=== PATIENT | female | born 1990 | race Caucasian/White ===

== ENCOUNTER 2019-10-16 12:09 | Inpatient (IN) | payer OTHER ==
[~2019-10-16] VITALS: Ht 157.5 cm; Wt 96.8 kg
[~2019-10-16 12:09] MED LIST: ATARAX,VISTARIL50 MG PO; BUSPAR5 MG PO; CHLORDIAZEPOXID10 M2 PO; CLEOCIN150 MG PO; GABAPENTIN800 MG PO; LAMICTAL25 MG PO; LAMOTRIGINE100 MG PO; LIBRIUM5 MG PO; ONDANSETRON HYDR4 M1 PO; PAXIL40 M1 PO; ROPINIROLE HYD0.5 MG PO; SINEMET 25-100M1 TAB PO; ZOFRAN 4 MG ED2 TAB PO
[2019-10-16 13:30] VITALS: BP 110/58
--- NOTE | 2019-10-16 13:30 | NUR ---
29 year old FEMALE admitted to room # 402-1 for stabilization. Reports an addiction to CRACK/COCAINE, FENTANYL last used 6 hours prior to admission. Compliant with admission procedure. Patient COMPLAINS OF ANXIETY, MUSCLE ACHES, & DIAPHORESIS. NOTIFIED HOSPITALISTS THAT PATIENT IS ON THE FLOOR.
--- NOTE | 2019-10-16 13:30 | NUR ---
PATIENT MEETS [facility]. CINA=[id number], CIWA(B) =48. PATIENT IS WANTING TO GO TO [facility] FOR RESIDENTIAL TREATMENT. [facility] STAFF WILL SEND REFERRAL TO FACILITY. [facility] STAFF WILL FOLLOW UP WITH PATIENT CONCERNING HER AFTERCARE PLAN. BRIAN SCHWAB B.A. CONTRACT RUNNER
[2019-10-16] MEDS ORDERED: TRAZODONE50 MG PO (13:42)
[2019-10-16] MEDS ORDERED: REMERON15 M2 PO (13:44)
[2019-10-16] MEDS ORDERED: CLONAZEPAM0.5 M1 PO (13:45)
[2019-10-16] MEDS ORDERED: SUBOXONE 8 MG-1 EACH SL (13:45)
[2019-10-16 14:55] LABS: BILIRUBIN NEGATIVE (NEGATIVE); BLOOD NEGATIVE (NEGATIVE); CLARITY CLEAR (CLEAR); COLOR YELLOW (YELLOW); GLUCOSE NEGATIVE (NEGATIVE); KETONE 1+ (NEGATIVE); LEUKO ESTERASE NEGATIVE (NEGATIVE); NITRITE NEGATIVE (NEGATIVE); SPECIFIC GRAVITY >= 1.030 (1.005-1.030)
[2019-10-16 15:03] LABS: BACTERIA 1+; MUCOUS 1+; URINE AMPHETAMINES < 1000 (1000ng/ml); URINE BARBITURATES < 200 (200ng/ml); URINE BENZODIAZEPINES < 200 (200ng/ml); URINE CANNABINOIDS (THC) < 50 (50ng/ml); URINE COCAINE > 300 (300ng/ml); URINE METHADONE < 300 (300ng/ml); URINE OPIATES < 300 (300ng/ml)
[2019-10-16 15:04] LABS: URINE PHENCYCLIDINE < 25 (25ng/ml)
[2019-10-16 15:08] LABS: BASO % 0.5 % (0.0-1.0); EOS # 0.3 10*3/uL (0.0-0.4); EOS % 3.4 % (1.0-4.0); HEMATOCRIT 42.5 % (37.0-47.0); HEMOGLOBIN 13.5 g/dl (12.0-16.0); LYMPH % 26.8 % (27.0-41.0); MEAN CORPUSCULAR HGB CONC 31.8 g/dl (33.0-37.0); MEAN PLATELET VOLUME 8.5 fl (9.6-12.3); MONO # 0.4 10*3/uL (0.1-1.0); MONO % 5.8 % (3.0-9.0); NEUT # 4.7 10*3/uL (2.3-7.9); NEUT % 63.2 % (47.0-73.0); PLATELET COUNT AUTOMATED 235 10*3/uL (130-400); RED CELL DISTRI WIDTH 14.7 % (0-14.5); WHITE BLOOD COUNT 7.4 10*3/uL (4.8-10.8)
[2019-10-16 15:22] LABS: INTERNATIONAL NORM RATIO 0.9 (2.0-3.5)
[2019-10-16 15:25] LABS: ALKALINE PHOSPHATASE 72 U/L (45-117); BUN 13 mg/dl (7-24); CHLORIDE 110 mmol/L (98-107); SGOT/AST 18 IU/L (3-35); SGPT/ALT 25 U/L (12-78); SODIUM 143 mmol/L (136-145); TOTAL PROTEIN 7.6 gm/dL (6.4-8.2)
[2019-10-16 15:34] LABS: BETA-HCG, QUANT < 1.0 mIU/mL (1-3); ETHYL ALCOHOL < 3.0 mg/dl (<3)
--- NOTE | 2019-10-16 15:38 | NUR ---
PT MEDICATED WITH PO MOTRIN FOR COMPLAINTS OF LEG ACHES. ALSO GIVEN NICODERM PER ORDER ALONG WITH ROUTINE ATIVAN & SUBUTEX. WILL MONITOR FOR EFFECTIVENESS.
[2019-10-16 16:00] VITALS: BP 112/56
--- NOTE | 2019-10-16 17:00 | NUR ---
PT ASLEEP; MUCH MORE RELAXED; NO S/S OF DISTRESS.
[2019-10-16 20:00] VITALS: BP 99/58
--- NOTE | 2019-10-16 20:11 | NUR ---
PATIENT IS RESTING IN BED EATING ICE CREAM AND WATCHING TV. 2000 MEDICATION GIVEN AT THIS TIME AND PATIENT IS REQUESTING HER GABAPENTIN AND SOMETHING FOR BODYACHES, INSOMNIA, AND NICOTINE REPLACEMENT. ASSESSMENT IS COMPLETE. BED IS LOW, LOCKED, AND CALL LIGHT IS WITHIN REACH. WILL CONTNIUE TO MONITOR, SEE SHIFT ASSESSMENT.
--- NOTE | 2019-10-16 23:30 | NUR ---
PT SLEEPNIG IN BED. RESPS EASY AND NON LABORED. NO S/S OF DISTRESS NOTED. WHITE BOARD UPDATED. PADDED SIDE RAILS INTACT. CALL LIGHT WITHIN REACH
[2019-10-17] VITALS: BP 104/57
--- NOTE | 2019-10-17 | NUR ---
MIDNIGHT DOSE OF ATIVAN NOT GIVEN. PATIENT IS LETHARGIC AND SLEEPING IN BED. RESPS EASY AND NON LABORED. NO S/S OF DISTRESS NOTED. AROUSES EASILY. CALL LIGHT WITHIN REACH. SEIZURE PRECAUTIONS IN PLACE.
--- NOTE | 2019-10-17 02:42 | NUR ---
24 HR chart check completed.
[2019-10-17 08:00] VITALS: BP 110/80
[2019-10-17 12:00] VITALS: BP 125/72
[2019-10-17 16:00] VITALS: BP 107/49; BP 125/72
[2019-10-17 20:00] VITALS: BP 101/58
--- NOTE | 2019-10-17 20:25 | NUR ---
PT SITTING UP IN BED, HARD TO KEEP EYES CLOSED. RESP-EASY AND REGULAR. REQUESTING NICOTINE GUM, SEE EMAR. CALL LIGHT IN REACH.
--- NOTE | 2019-10-17 20:26 | NUR ---
CALLED DR. WHITE PT REQUESTING NICOTROL INHALER. HE WILL PUT ORDER IN.
--- NOTE | 2019-10-17 22:50 | NUR ---
PT SITTING UP IN BED. TOLERATED ROUTINE MEDS WITH NO PROBLEM. RESTORIL FOR SLEEP, SUBUTEX FOR WITHDRAWAL SYMPTOMS. CALL LIGHT IN REACH.
[2019-10-18] VITALS: BP 100/52; BP 99/45
--- NOTE | 2019-10-18 00:25 | NUR ---
PT SLEEPING IN BED. RESP-EASY AND REGULAR. CALL LIGHT IN REACH. SEE SHIFT ASSESSMENT.
--- NOTE | 2019-10-18 04:56 | NUR ---
PT TOLERATED ROUTINE SUBUTEX FOR WITHDRAWAL SYMPTOMS. ALSO ATIVAN FOR ANXIETY. CALL LIGHT IN REACH. SEE EMAR. RESP-EASY AND REGULAR.
[2019-10-18 08:00] VITALS: BP 105/57
--- NOTE | 2019-10-18 08:08 | NUR ---
PT MEDICATED WITH VISTARIL FOR ANXIETY AND ROBAXIN FOR MUSCLE ACHES WILL MONITOR
--- NOTE | 2019-10-18 11:00 | NUR ---
PT RESTING IN BED/ EYES CLOSED, VISTARIL AND ROBAXIN APPEAR EFFECTIVE. WILL MONITOR
[2019-10-18 12:00] VITALS: BP 111/54
--- NOTE | 2019-10-18 12:52 | NUR ---
PT REQUESTED AND GIVEN MOTRIN FOR GEN PAIN PT OFFERED TYLENOL ORDERED, PT PREFERED THE MOTRIN WILL MONITOR
--- NOTE | 2019-10-18 13:03 | NUR ---
[facility] STAFF SPOKE WITH PATIENT ABOUT HER AFTERCARE PLAN. PATIENT IS WANTING TO GO TO [facility] FOR RESIDENTIAL TREATMENT. PATIENT REPORTS THAT HER FAMILY CAN PROVIDE HER A RIDE TO FACILITY. [facility] STAFF WILL CONTACT [facility] TO CONFIRM DATE AND TIME. [place] STAFF WILL FOLLOW BACK UP WITH PATIENT. BRIAN SCHWAB B.A. CONTENT ARCHITECT
[2019-10-18 18:00] VITALS: BP 95/54
[2019-10-18 20:00] VITALS: BP 116/62
--- NOTE | 2019-10-18 20:30 | NUR ---
PT RESTING IN BED WITH EYES CLOSED, AWAKENS. TOLERATED ROUTINE MED WITH NO PROBLEM. CALL LIGHT IN REACH.
--- NOTE | 2019-10-18 21:50 | NUR ---
RESTING IN BED WITH EYES CLOSED. RESP-EASY AND REGULAR. CALL LIGHT IN REACH.
[2019-10-19] VITALS: BP 118/68
--- NOTE | 2019-10-19 00:10 | NUR ---
PT SLEEPING IN BED, RESP-EASY AND REGULAR. MEDICATION SEEM TO BE HELPING. CALL LIGHT IN REACH. SEE SHIFT ASSESSMENT.
--- NOTE | 2019-10-19 04:00 | NUR ---
SLEEPING IN BED. RESP-EASY AND REGULAR. CALL LIGHT IN REACH.
--- NOTE | 2019-10-19 05:15 | NUR ---
TOLERATED ROUTINE MED SUBUTEX FOR WITHDRAWAL SYMPTOMS. NO OTHER C/O AT THIS TIME. CALL LIGHT IN REACH.
[2019-10-19 06:11] LABS: BASO % 0.4 % (0.0-1.0); EOS # 0.2 10*3/uL (0.0-0.4); EOS % 2.5 % (1.0-4.0); HEMATOCRIT 40.9 % (37.0-47.0); HEMOGLOBIN 12.9 g/dl (12.0-16.0); LYMPH # 2.9 10*3/uL (1.3-4.4); LYMPH % 42.5 % (27.0-41.0); MEAN CORPUSCULAR HGB 27.4 pg (27.0-31.0); MEAN CORPUSCULAR HGB CONC 31.5 g/dl (33.0-37.0); MEAN PLATELET VOLUME 9.1 fl (9.6-12.3); MONO # 0.3 10*3/uL (0.1-1.0); MONO % 4.2 % (3.0-9.0); NEUT # 3.5 10*3/uL (2.3-7.9); NEUT % 50.1 % (47.0-73.0); PLATELET COUNT AUTOMATED 250 10*3/uL (130-400); RED CELL DISTRI WIDTH 14.7 % (0-14.5); WHITE BLOOD COUNT 6.9 10*3/uL (4.8-10.8)
[2019-10-19 06:28] LABS: CREATININE 0.72 mg/dL (0.55-1.02)
[2019-10-19 08:00] VITALS: BP 112/53
[2019-10-19] MEDS ORDERED: LIBRIUM5 MG PO (10:15)
[2019-10-19 12:00] VITALS: BP 110/48
--- NOTE | 2019-10-19 12:06 | NUR ---
[facility] STAFF SPOKE WITH [facility] AND THEY WILL ACCEPT PATIENT ON October. [facility] STAFF REVIEWED WITH PATIENT AND SHE IS AGREEABLE TO AFTERCARE PLAN. PATIENT WILL BE TRANSPORTED BY FAMILY. BRIAN SCHWAB B.A. ENVIRONMENTAL STUDIES FACULTY MEMBER
--- NOTE | 2019-10-19 13:00 | NUR ---
Discharge instructions reviewed with patient/family. Patient receptive and verbalizes understanding. Follow-up care arranged. Written instructions given to patient/family. PATIENT'S HEPLOCK DISCONTINUED. PICKED UP BY MOTHER. AMBULATORY OFF FLOOR. WILLIE BARAJAS
== END 2019-10-19 13:00 | disposition home or self-care (01) | DRG 773 ==
LOC: 5E 12:09 → 4E 12:09 → 5E 10-17 18:10
PROVIDERS: Registered Nurse; ADMIT Internal Medicine
DX: F11.23 Opioid dependence with withdrawal (principal); F19.20 Other psychoactive substance dependence, uncomplicated; F14.90 Cocaine use, unspecified, uncomplicated; E87.8 Other disorders of electrolyte and fluid balance, not elsewhere classified; G62.9 Polyneuropathy, unspecified; F17.210 Nicotine dependence, cigarettes, uncomplicated; F13.239 Sedative, hypnotic or anxiolytic dependence with withdrawal, unspecified; F31.9 Bipolar disorder, unspecified; E66.01 Morbid (severe) obesity due to excess calories; F41.9 Anxiety disorder, unspecified; G89.29 Other chronic pain; Z83.79 Family history of other diseases of the digestive system; Z83.3 Family history of diabetes mellitus; Z88.1 Allergy status to other antibiotic agents; Z68.41 Body mass index [BMI] 40.0-44.9, adult; Z91.013 Allergy to seafood; Z79.899 Other long term (current) drug therapy; Z88.8 Allergy status to other drugs, medicaments and biological substances; Z91.018 Allergy to other foods

== ENCOUNTER 2020-11-20 14:25 | Inpatient (IN) | payer OTHER ==
[~2020-11-20] VITALS: Ht 157.5 cm; Wt 112.0 kg
[~2020-11-20 14:25] MED LIST changes: +CLONAZEPAM0.5 M1 PO; +REMERON15 M2 PO; +SUBOXONE 8 MG-1 EACH SL; +TRAZODONE50 MG PO
[2020-11-20 14:31] VITALS: BP 139/70
[2020-11-20] MEDS ORDERED: LIPITOR10 MG PO (14:45)
[2020-11-20] MEDS ORDERED: PAXIL30 M2 PO (14:45)
[2020-11-20] MEDS ORDERED: SUBOXONE 8 MG-1 EACH SL (14:47)
[2020-11-20 14:54] LABS: BASO % 0.4 % (0.0-1.0); EOS # 0.2 10*3/uL (0.0-0.4); EOS % 3.9 % (1.0-4.0); HEMATOCRIT 46.4 % (37.0-47.0); LYMPH % 43.2 % (27.0-41.0); MEAN CELL VOLUME 82.9 fl (81.0-99.0); MEAN CORPUSCULAR HGB 26.6 pg (27.0-31.0); MEAN CORPUSCULAR HGB CONC 32.1 g/dl (33.0-37.0); MEAN PLATELET VOLUME 8.1 fl (9.6-12.3); MONO # 0.3 10*3/uL (0.1-1.0); MONO % 5.6 % (3.0-9.0); NEUT # 2.1 10*3/uL (2.3-7.9); NEUT % 46.2 % (47.0-73.0); PLATELET COUNT AUTOMATED 238 10*3/uL (130-400); RED CELL DISTRI WIDTH 14.6 % (0-14.5); WHITE BLOOD COUNT 4.6 10*3/uL (4.8-10.8)
[2020-11-20 15:16] LABS: ALBUMIN 3.9 gm/dl (3.1-4.5); BUN 7 mg/dl (7-24); CHLORIDE 110 mmol/L (98-107)
[2020-11-20 15:18] LABS: ALKALINE PHOSPHATASE 75 U/L (45-117); CREATININE 0.87 mg/dL (0.55-1.02); POTASSIUM 4.1 mmol/L (3.5-5.1); SGOT/AST 23 IU/L (3-35); SGPT/ALT 40 U/L (12-78); SODIUM 140 mmol/L (136-145)
[2020-11-20 15:23] LABS: ETHYL ALCOHOL < 3.0 mg/dl (<3)
[2020-11-20 15:29] LABS: CPK 102 U/L (26-192)
[2020-11-20 15:32] LABS: TROPONIN I < 0.015 ng/ml (<0.045)
[2020-11-20 16:10] LABS: BILIRUBIN Negative (Negative); BLOOD Negative (Negative); CLARITY Clear (Clear); COLOR Yellow (Yellow); GLUCOSE Negative (Negative); KETONE Negative (Negative); LEUKO ESTERASE Trace (Negative); NITRITE Negative (Negative); SPECIFIC GRAVITY 1.015 (1.001-1.030)
[2020-11-20 16:21] LABS: URINE AMPHETAMINES < 1000 (1000ng/ml); URINE BARBITURATES < 200 (200ng/ml); URINE BENZODIAZEPINES < 200 (200ng/ml); URINE CANNABINOIDS (THC) < 50 (50ng/ml); URINE COCAINE > 300 (300ng/ml); URINE METHADONE < 300 (300ng/ml); URINE OPIATES < 300 (300ng/ml)
[2020-11-20 16:30] LABS: URINE PHENCYCLIDINE < 25 (25ng/ml)
[2020-11-20 16:37] LABS: BACTERIA TRACE; EPITHELIAL CELLS 16-20
[2020-11-20 18:13] VITALS: BP 124/66
[2020-11-20 20:00] VITALS: BP 91/53
[2020-11-21] VITALS (7 sets, daily range): BP systolic 98–124; BP diastolic 44–72
== END 2020-11-21 22:00 | disposition left against medical advice (07) | DRG 770 ==
LOC: ED 14:25 → 5E 14:44 → EDHOLD 14:44 → 5E 17:36
PROVIDERS: Emergency Medicine; ADMIT Student in an Organized Health Care Education/Training Program; ATTEND Student in an Organized Health Care Education/Training Program
DX: F19.20 Other psychoactive substance dependence, uncomplicated (principal); M79.7 Fibromyalgia; E78.5 Hyperlipidemia, unspecified; F15.10 Other stimulant abuse, uncomplicated; F13.10 Sedative, hypnotic or anxiolytic abuse, uncomplicated; F14.10 Cocaine abuse, uncomplicated; F31.9 Bipolar disorder, unspecified; E87.8 Other disorders of electrolyte and fluid balance, not elsewhere classified; F17.210 Nicotine dependence, cigarettes, uncomplicated; F41.9 Anxiety disorder, unspecified; G89.29 Other chronic pain; E66.01 Morbid (severe) obesity due to excess calories; G62.9 Polyneuropathy, unspecified; F11.99 Opioid use, unspecified with unspecified opioid-induced disorder; Z53.29 Procedure and treatment not carried out because of patient's decision for other reasons; Z88.1 Allergy status to other antibiotic agents; Z88.8 Allergy status to other drugs, medicaments and biological substances; Z82.49 Family history of ischemic heart disease and other diseases of the circulatory system; Z83.3 Family history of diabetes mellitus; Z68.42 Body mass index [BMI] 45.0-49.9, adult

== ENCOUNTER 2021-01-08 18:06 | Inpatient (IN) | payer OTHER ==
[~2021-01-08] VITALS: Ht 157.4 cm; Wt 106.1 kg
[~2021-01-08 18:06] MED LIST changes: +LIPITOR10 MG PO; +PAXIL30 M2 PO
[2021-01-08 18:56] VITALS: BP 125/77
[2021-01-08] MEDS ORDERED: VISTARIL50 MG PO (19:27)
[2021-01-08 19:55] LABS: BASO % 0.4 % (0.0-1.0); EOS # 0.2 10*3/uL (0.0-0.4); EOS % 2.1 % (1.0-4.0); HEMATOCRIT 45.5 % (37.0-47.0); LYMPH # 2.8 10*3/uL (1.3-4.4); LYMPH % 38.3 % (27.0-41.0); MEAN CELL VOLUME 81.4 fl (81.0-99.0); MEAN CORPUSCULAR HGB 26.7 pg (27.0-31.0); MEAN CORPUSCULAR HGB CONC 32.7 g/dl (33.0-37.0); MEAN PLATELET VOLUME 8.3 fl (9.6-12.3); MONO # 0.3 10*3/uL (0.1-1.0); MONO % 4.2 % (3.0-9.0); NEUT % 54.9 % (47.0-73.0); PLATELET COUNT AUTOMATED 249 10*3/uL (130-400); RED BLOOD COUNT 5.59 10*6/uL (4.10-5.10); RED CELL DISTRI WIDTH 14.4 % (0-14.5); WHITE BLOOD COUNT 7.2 10*3/uL (4.8-10.8)
[2021-01-08 20:00] VITALS: BP 112/70
[2021-01-08 20:15] LABS: ALBUMIN 3.8 gm/dl (3.1-4.5); ALKALINE PHOSPHATASE 75 U/L (45-117); BUN 14 mg/dl (7-24); CHLORIDE 108 mmol/L (98-107); CREATININE 0.96 mg/dL (0.55-1.02); POTASSIUM 3.7 mmol/L (3.5-5.1); SGOT/AST 22 IU/L (3-35); SGPT/ALT 43 U/L (12-78); SODIUM 138 mmol/L (136-145); TOTAL PROTEIN 7.6 gm/dL (6.4-8.2)
[2021-01-08 20:21] LABS: BETA-HCG, QUANT < 1.0 mIU/mL (1-3); ETHYL ALCOHOL < 3.0 mg/dl (<3); TROPONIN I < 0.015 ng/ml (<0.045)
[2021-01-08 23:07] LABS: BILIRUBIN Negative (Negative); BLOOD Negative (Negative); CLARITY Clear (Clear); COLOR Yellow (Yellow); GLUCOSE Negative (Negative); KETONE Negative (Negative); LEUKO ESTERASE Negative (Negative); NITRITE Negative (Negative); PH 5.5 (4.5-8.0); UROBILINOGEN 0.2 E.U./dl (0.0-1.0)
[2021-01-08 23:15] LABS: URINE AMPHETAMINES < 1000 (1000ng/ml); URINE BARBITURATES < 200 (200ng/ml); URINE BENZODIAZEPINES > 200 (200ng/ml); URINE CANNABINOIDS (THC) < 50 (50ng/ml); URINE COCAINE > 300 (300ng/ml); URINE METHADONE < 300 (300ng/ml); URINE OPIATES < 300 (300ng/ml)
[2021-01-08 23:18] LABS: URINE PHENCYCLIDINE < 25 (25ng/ml)
[2021-01-08 23:20] LABS: EPITHELIAL CELLS 16-20; RBC 0-2 rbc/hpf (0-2); WBC 0-2 wbc/hpf (0-5)
[2021-01-09] VITALS: BP 131/82
[2021-01-09 04:00] VITALS: BP 118/58
[2021-01-09 08:00] VITALS: BP 106/62
[2021-01-09 16:00] VITALS: BP 100/58
[2021-01-09 20:00] VITALS: BP 86/67
[2021-01-09 20:40] VITALS: BP 102/58
[2021-01-10] VITALS: BP 104/58
[2021-01-10 07:06] LABS: HEPATITIS C AB <0.1 (0.0-0.9)
[2021-01-10 08:00] VITALS: BP 113/58
[2021-01-10 16:00] VITALS: BP 110/62
[2021-01-10 20:00] VITALS: BP 102/64
[2021-01-11] VITALS: BP 123/57
[2021-01-11 08:00] VITALS: BP 113/55
== END 2021-01-11 10:15 | disposition home or self-care (01) | DRG 774 ==
LOC: 5E 18:06
PROVIDERS: Student in an Organized Health Care Education/Training Program; ADMIT Student in an Organized Health Care Education/Training Program; ATTEND Student in an Organized Health Care Education/Training Program
DX: F13.239 Sedative, hypnotic or anxiolytic dependence with withdrawal, unspecified (principal); F17.210 Nicotine dependence, cigarettes, uncomplicated; F41.9 Anxiety disorder, unspecified; F32.9 Major depressive disorder, single episode, unspecified; M79.7 Fibromyalgia; G89.29 Other chronic pain; F14.13 Cocaine abuse, unspecified with withdrawal; F19.10 Other psychoactive substance abuse, uncomplicated; E78.5 Hyperlipidemia, unspecified; G62.9 Polyneuropathy, unspecified; E66.01 Morbid (severe) obesity due to excess calories; Z82.49 Family history of ischemic heart disease and other diseases of the circulatory system; Z83.3 Family history of diabetes mellitus; Z88.1 Allergy status to other antibiotic agents; Z88.8 Allergy status to other drugs, medicaments and biological substances; Z71.6 Tobacco abuse counseling; Z68.41 Body mass index [BMI] 40.0-44.9, adult